=== PATIENT | female | born 1960 | race Caucasian/White ===

== ENCOUNTER → 2018-05-29 07:04 | Outpatient (CLI) | payer OTHER, SELFPAY ==
--- NOTE | 2018-05-29 07:09 | BI_ITS ---
MAMMOGRAPHY - BILATERAL SCREENING 3-D ROSEY SYNTHESIS REASON FOR EXAM: Female, 58 years old. Bilateral Screening 3-D tomosynthesis PERTINENT HISTORY: History of breast cancer in sister at age 48 and mother at age 82. Benign left stereotactic biopsy in 2002. TECHNIQUE: 2-D mammograms and 3-D Rosey synthesis of the breast (s) were performed. CAD was performed. COMPARISON: February 06, 2017, October 21, 2015 FINDINGS: The breast composition is almost entirely fat. There are multiple small nodular densities bilaterally unchanged. There are benign calcifications bilaterally. There has been no significant change since the prior study. BI/SCREENING MAMM (CAD), BILAT IMPRESSION: No mammographic signs of malignancy. Routine yearly mammograms recommended. ASSESSMENT CATEGORY: BIRADS Category 2: Benign. A letter regarding these results will be sent to the patient by the facility within 30 days. FOLLOW UP RECOMMENDATION: Yearly follow up mammogram recommended. (A) Approximately 10% of breast cancers are not detected by mammography. A normal mammogram should not delay biopsy of a clinically suspicious abnormality. Electronically Signed: Mayank Nath MD at 13:47 EDT , Service support ,
== END ==
PROVIDERS: Family Provider Nurse Practitioner Family; PCP Nurse Practitioner Family; Visit Provider Obstetrics & Gynecology
DX: Z12.31 Encounter for screening mammogram for malignant neoplasm of breast (principal)
CPT/HCPCS: 77063; 77067

== ENCOUNTER → 2018-06-06 09:02 | Outpatient (CLI) | payer OTHER, SELFPAY | PROVIDERS: Family Provider Nurse Practitioner Family; PCP Nurse Practitioner Family; Visit Provider Obstetrics & Gynecology | DX: R92.8 Other abnormal and inconclusive findings on diagnostic imaging of breast (principal) | CPT/HCPCS: 76642; 77065 ==

== ENCOUNTER → 2018-06-12 18:10 | Outpatient (CLI) | payer OTHER, SELFPAY ==
--- NOTE | 2018-06-12 | IMM_PTH ---
PATIENT: BRIAN HUSSEIN LOC: [facility] U#:[id number] AGE/SX: 65/F ROOM: RE06/12/[address]: Dr. Alonzo Holloway MD : 1960 BED: DIS: SPEC #: [id number] RECD: 06/14/18 11:03 STATUS: LANDRY SANJUANITA #: [id number] JEEVAN: 06/12/18 00:[address]: Alonzo Holloway DEPT: IMMUNOHISTOCHEMISTRY RECD BY: Haley Paniagua ENTERED: 06/14/18 11:06 SP TYPE: IMMUNO OTHR DR: Vilma Bowens, PRE PLANNING ADVISOR-C Tissues: Left breast, NOS Procedures: CALPONIN-1 (add) CK5-6 (add) CK8 (add) E-CAD (add) HER2 AVELINA (add) KI-67 (add) P53 (add) VA (add) P40 (add) ER (initial) PHYSICIAN & INSTITUTION [address] [address] SPECIMEN INFORMATION: Tissue Source: Left breast Clinical Info: Left breast mass Specimen Number: [id number] CPT code: 06774, 22665 x6, 23146 x3 METHODOLOGY: Deparaffinized sections of prefer/formalin-fixed tissue or PAP/DQ stained slides are incubated with monoclonal/polyclonal antibodies/oligonucleotide probes. Localization is made via biotin free immunoperoxidase method. Appropriate controls are performed and reacted as expected. Results on target cell population are indicated in the following table: RESULTS: ANTIBODY / CLONE RESULT P53 (DO-7) positive, 1% Ki-67 (30-9) positive, 2-5% CK8 (15xpiyL83) positive CK5-6 (D5 & 1684) negative Calponin-1 (AG510K) negative P40 (BC28) negative E-Cad (ECH-6) positive MORPHOMETRIC ANALYSIS ER (clone 6F11) >95%, strong VA (clone 16/1E2) 38%, weak to moderate Her-2Neu (clone CB11) 0 The prognostic test for HER2 is performed on formalin-fixed paraffin embedded tissue. A 3+ (positive) staining pattern is defined as intense, homogeneous, complete, circumferential membranous staining in >10% of contiguous tumor cells. A similar weak (2+) staining pattern is interpreted as equivocal. YON follow-up testing is recommended for all equivocal cases. Positivity/negativity for ER/VA is reported if > or < 1% of the tumor cells are immuno- reactive, respectively. The ASCO/CAP criteria is used for scoring. Reference: Journal of Clinical Oncology, 2013; 31:1575-8018 & 2010; 16:0457-7950. Duration of fixation: 27.5 Hrs; Sample Adequate: Yes. These assays have not been validated on decalcified tissues. Results should be interpreted with caution given the likelihood of false negativity on decalcified specimens. These tests were developed and their performance characteristics determined by [facility]. They may not have been cleared or approved by the U.S. Food and Drug Administration. The FDA has determined that such clearance or approval is not necessary. INTERPRETATION: Left breast, needle core biopsy: Invasive ductal carcinoma, nuclear grade I. Positive for estrogen receptors (favorable prognostic indicator). Positive for progesterone receptors (favorable prognostic indicator). Negative for overexpression of ZXX2nsp. AM:aureliano 06/15/18
--- NOTE | 2018-06-12 16:00 | BRBX_PTH ---
PATIENT: BRIAN HUSSEIN LOC: [facility] U#:[id number] AGE/SX: 65/F ROOM: RE06/12/[address]: Dr. Alonzo Holloway MD : 1960 BED: DIS: SPEC #: [id number] RECD: 06/12/18 18:10 STATUS: LANDRY SANJUANITA #: [id number] JEEVAN: 06/12/18 16:[address]: Alonzo Holloway DEPT: SURGICAL PATHOLOGY RECD BY: Lacho Coles ENTERED: 06/13/18 09:57 SP TYPE: BREAST BX OTHR DR: ANGELICA Ortiz Tissues: Left breast, NOS Procedures: Surgery Specimen Level IV HEADER OPERATION: Needle core biopsy of left breast PRE-OP DIAGNOSIS: Left breast mass TISSUE SUBMITTED: Left breast tissue ISCHEMIC TIME: <1 minute FIXATION TIME: 27.5 hours MICROSCOPIC DIAGNOSIS Left breast mass, core biopsy: Invasive ductal carcinoma: Nuclear grade ? 1 Maximal length ? 8 mm AM:aureliano 06/14/18 COMMENT ER/UT/Wyn9qye studies are being performed on sections of tumor and the results from this study will be reported separately ([id number]). Case has been reviewed in consultation with Dr. Aragon who concurs with the above diagnosis. IDC:CARLIN MICROSCOPIC DESCRIPTION Slides are reviewed. GROSS DESCRIPTION Received in fixative is one container labeled with the patient's name and designated left breast biopsy. The specimen consists of an elongated piece of ward-yellow fibroadipose tissue measuring 1 cm in length and 0.1 cm in diameter. The entire specimen is submitted in one cassette. / CARLIN:aureliano 06/13/18 TC:0 CPT: 02087
== END ==
PROVIDERS: Family Provider Nurse Practitioner Family; PCP Nurse Practitioner Family; Visit Provider Surgery
DX: N63.20 Unspecified lump in the left breast, unspecified quadrant (principal)
CPT/HCPCS: 88305; 88341; 88342

== ENCOUNTER → 2018-06-21 10:10 | Outpatient (CLI) | payer OTHER, SELFPAY | PROVIDERS: Family Provider Nurse Practitioner Family; PCP Nurse Practitioner Family; Visit Provider Surgery | DX: C50.912 Malignant neoplasm of unspecified site of left female breast (principal) | CPT/HCPCS: 77059; A9585; A4216; C8908 ==

== ENCOUNTER 2018-07-30 11:35 | Day surgery (SDC) | payer OTHER, SELFPAY ==
--- NOTE | 2018-07-26 08:42 | RAD_ITS ---
STUDY: X-RAY CHEST REASON FOR EXAM: Female, 58 years old. PRE OP FOR LEFT LUMPECTOMY WITH SENTINEL LYMPH NODE BX, NO CHEST COMPLAITNS TECHNIQUE: Frontal and lateral views of the chest. COMPARISON: None. FINDINGS: The lungs are clear and expanded. There is no demonstrated pleural abnormality. Normal size heart. Normal mediastinum and juan c. Normal visualized pulmonary arteries. Normal visualized aortic arch and descending thoracic aorta. Normal visualized thoracic spine. Normal visualized ribs, clavicles, and shoulders. There is no demonstrated abnormality of the visualized soft tissue structures of the upper abdomen. RAD/Chest PA and Lateral IMPRESSION: Normal x-ray examination of the chest. Electronically Signed: Rodri Yuan MD at 9:12 EDT Tel , Service support ,
--- NOTE | 2018-07-30 | IMM_PTH ---
PATIENT: BRIAN HUSSEIN LOC: [facility] – [place] U#:[id number] AGE/SX: 58/F ROOM: RE07/30/[address]: Dr. Alonzo Holloway MD : 1960 BED: DIS: 07/30/2018 SPEC #: [id number] RECD: 08/02/18 12:30 STATUS: LANDRY SANJUANITA #: [id number] JEEVAN: 07/30/18 00:[address]: Alonzo Holloway DEPT: IMMUNOHISTOCHEMISTRY RECD BY: Haley Paniagua ENTERED: 08/02/18 12:32 SP TYPE: IMMUNO OTHR DR: Vilma Bowens, ANGELICA Tissues: A - Axillary lymph node, NOS B - Left breast, NOS Procedures: E-CAD (initial) CK7 (add) Pankeratin (initial) PHYSICIAN & INSTITUTION [place] [address] SPECIMEN INFORMATION: Tissue Source: A - Left axillary lymph node, B - Left breast, transverse ellipse Clinical Info: Malignant neoplasm Specimen Number: [id number] A1 & B2 CPT code: 33224 x2, 15124 METHODOLOGY: Deparaffinized sections of prefer/formalin-fixed tissue or PAP/DQ stained slides are incubated with monoclonal/polyclonal antibodies/oligonucleotide probes. Localization is made via biotin free immunoperoxidase method. Appropriate controls are performed and reacted as expected. Results on target cell population are indicated in the following table: RESULTS: ANTIBODY / CLONE RESULT Block A1 AE1-3 (AE1/AE3/PCK26) negative CK7 (OV-TL12/30) negative Block B1 E-Cad (ECH-6) positive These tests were developed and their performance characteristics determined by [facility]. They may not have been cleared or approved by the U.S. Food and Drug Administration. The FDA has determined that such clearance or approval is not necessary. INTERPRETATION: A. Left axillary sentinel lymph node, biopsy: One out of one lymph node negative for carcinoma. B. Left breast, lumpectomy: Invasive ductal carcinoma. Focal ductal carcinoma in situ. AM:aureliano 08/02/18
--- NOTE | 2018-07-30 | BRBX_PTH ---
PATIENT: BRIAN HUSSEIN LOC: [facility] – [place] U#:[id number] AGE/SX: 58/F ROOM: RE07/30/[address]: Dr. Alonzo Holloway MD : 1960 BED: DIS: 07/30/2018 SPEC #: [id number] RECD: 07/30/18 14:34 STATUS: LANDRY SANJUANITA #: [id number] JEEVAN: 07/30/18 00:[address]: Alonzo Holloway DEPT: SURGICAL PATHOLOGY RECD BY: Haley Paniagua ENTERED: 07/30/18 15:06 SP TYPE: BREAST BX OTHR DR: Vilma Bowens, FLOUR BLENDER-C Tissues: A - Axillary lymph node, NOS B - Left breast, NOS C - Left breast, NOS Procedures: Frozen Section (charge) Surgery Specimen Level IV Surgery Specimen Level V Frozen (no charge) HEADER OPERATION: Breast lumpectomy, sentinel node PRE-OP DIAGNOSIS: Malignant neoplasm of lower inner quadrant, left breast, ER positive TISSUE SUBMITTED: A - Left axillary lymph node sent to lab for FS at 1419, B - Suture - lateral, transverse ellipse left breast sent to lab at 1430 - lateral, C - Additional medial-posterior margin, left breast FROZEN SECTION DIAGNOSIS A. Left axillary sentinel lymph node, biopsy: One out of one benign lymph node. Fragments of benign breast parenchyma. AM:aureliano 07/30/18 MICROSCOPIC DIAGNOSIS A. Left axillary sentinel lymph node, biopsy: One out of one lymph node, negative for metastatic carcinoma. Fragments of benign breast parenchyma. B. Left breast, lumpectomy: Invasive ductal carcinoma. See cancer checklist below. C. Additional medial-posterior margin of left breast, excision: Benign breast parenchyma. No evidence of malignancy. See comment. AM:aureliano 08/02/18 COMMENT B. INVASIVE BREAST CANCER SUMMARY: Procedure: Excision with wire guidance Specimen: Partial breast Specimen integrity: Single intact specimen. Specimen size: 6 x 5.5 x 2 cm Specimen laterality: Left breast Invasive tumor: Tumor size: 0.9 x 0.5 x 0.5 cm Tumor focality: Single focus of invasive carcinoma Macroscopic and Microscopic extent of tumor: Skin: Free of carcinoma. Nipple: Not present Skeletal muscle: Present Histologic type of invasive carcinoma: Invasive ductal carcinoma Histologic Grade (Lyme grade): Glandular/tubular differentiation score: 3 Nuclear pleomorphism score: 2 Mitotic count score: 1 Overall grade: Grade 2 (total score of 6) Margins: Uninvolved by invasive carcinoma (inclusive of specimens B & C). Lymph-Vascular invasion: Not identified Dermal lymph-vascular invasion: Not identified Ductal carcinoma in situ (DCIS): Estimated size (extent) of DCIS: 2.2 x 1 x 1 mm Number of blocks with DCIS: 2 Number of blocks examined: 12 Architectural patterns: Solid and focal cribriform Nuclear grade: grade 1 Necrosis: Not identified Lobular carcinoma in situ (LCIS): Not present Lymph nodes: Number of sentinel lymph nodes examined - 1 Total number of lymph nodes examined (sentinel and nonsentinel) - 1 No evidence of macrometastases, micrometastases or isolated tumor cells. See specimen A. Microcalcifications: Present in neoplastic tissue Treatment effect: No known presurgical therapy Additional pathologic findings consistent with previous biopsy: Focal intraductal hyperplasia without atypia and fibrocystic change. Ancillary studies: Previously performed on same tumor ([id number] / [id number]) ER: >95%, strong MD: 38%, Weak to moderate Her2 amadeo: 0 ([facility]) PATHOLOGIC STAGE: pT1b N0(sn) Mx The above summary is in compliance with College of [place] Path[employer] (CAP) Cancer Protocols Checklist and [place] Joint Committee on Cancer (AJCC), Staging Manual, 8th Ed. C. Skeletal muscle fragments are present in the biopsy. Case has been reviewed in consultation with Dr. Aragon who concurs with the above diagnosis. IDC:SJ MICROSCOPIC DESCRIPTION Slides are reviewed. GROSS DESCRIPTION A - Received fresh for frozen section consultation labeled with the patient's name is a specimen designated left axillary sentinel lymph nodes. The specimen consists of three irregular fragments of ward-yellow fibrofatty tissue that in aggregate measure 5 x 4 x 1 cm. Dissection reveals three nodules ranging in size from 1 to 2 cm. The nodules are submitted in their entirety for frozen section consultation in three separate blocks. / AM:aureliano 07/30/18 B - Received fresh for intraoperative consultation labeled with the patient's name is a specimen designated left breast transverse ellipse, suture lateral. The specimen consists of a piece of ward-yellow fibroadipose tissue (without needle localization) measuring 6 x 5.5 x 2 cm. A piece of skin is noted anteriorly measuring 3 x 0.7 cm. The specimen is oriented by a suture at lateral margin and skin anteriorly. The specimen is inked as follows: anterior - yellow, posterior - black, superior to inferior portions - blue, inferior - green, medial - red and lateral - orange. Serial sections reveal a tumor mass measuring 0.9 x 0.5 x 0.5 cm. This tumor mass is 0.5 cm away from the medial and inferior margin. This information is conveyed to the surgeon intraoperatively. Inspector Hot Forgings sections are submitted in 12 cassettes as follows: 1-7 - tumor with closest medial and inferior margins, 8-12 - containers sales representative sections from the other area including closest margin (cassette 11 contains the skin). About 80% of the specimen is submitted. Sections will be submitted after additional fixation. / SJ:aureliano 07/31/18 C - Received in fixative is one container labeled with the patient's name and designated additional medial posterior margin left breast. The specimen consists of a piece of fibroadipose tissue measuring 3.5 x 2 x 1 cm. The margin is not oriented. One surface is inked black and opposite surface is inked blue. Sections do not reveal any mass lesion. The entire specimen is submitted in three cassettes from one end to another end. / SJ:aureliano 07/31/18 TC:0 CPT: 81367 x2, 13980, 73069 ADDENDUM ADDENDUM ADDENDUM ADDENDUM ADDENDUM ADDENDUM 08/28/2018 11:08 ADDENDUM 08/28/2018 11:08 ADDENDUM 08/28/2018 11:08 ADDENDUM 08/28/2018 11:08 ADDENDUM 08/28/2018 11:08 B. The invasive carcinoma is located 0.5 cm from the closest (medial and inferior) margins of excision. Case was discussed with Dr. Chacon on 08/28/[address] Man.
[2018-07-30 11:48] VITALS: BP 157/88; PULSE 72; RESP 16; TEMP 37.4; O2SAT 100; BMI 25.7
--- NOTE | 2018-07-30 13:32 | PCM.DC.BS ---
Discharge Diet: No Restrictions Discharge Activity: May not drive while taking narcotic pain medications., May Shower May shower in (days): 1 Lifting Restrictions: 10 pounds for 1 week. Call your doctor if your incision/area has: Continuous Slow Oozing, Sudden Increased Bleeding Call your doctor if you observe: Fever of 101 or Higher Suture Line Care: Avoid Pulling/Pushing, Avoid Pinching/Bending Remove Dressing in (days):: 1 - You may remove the bulky dressing tomorrow. You may leave the plastic dressings on for an additional 2 days. You may then leave Steri-Strips on for an additional 1 week Allergies/Adverse Reactions: Allergies No Known Allergies Allergy (Verified 07/26/18 08:11) Medications to take at Discharge Levothyroxine [Synthroid] 125 mcg PO QHS 08/02/17 colestipol 1 gram tablet 1 g PO BID tab 06/12/18 glucosamine sulfate 1,000 mg capsule 1,000 mg PO DAILY 06/12/18 Biotin 5,000 mcg PO DAILY 06/21/18 Lysine [l-Lysine] 500 mg PO DAILY 06/21/18 Mv,Ca,Min/Folic Acid/Vit K1 [One-A-Day Women's 50 Plus Tab] 1 ea PO DAILY 06/21/18 Hydrocodone Bitart/Apap 5-325 [[place] 5MG-325MG] 1 tablet PO Q6H PRN PRN 3 Days #8 tablet 07/30/18 The following prescriptions were given: Hydrocodone Bitart/Apap 5-325 [[place] 5MG-325MG] 1 tablet PO Q6H PRN PRN 3 Days #8 tablet PRN Reason: Pain Primary Care Physician: Vilma Bowens NP-C [Primary Care Provider] - Please Follow Up With: Alonzo Holloway MD When: Call for appointment for 1 week. [phone]
--- NOTE | 2018-07-30 13:35 | DCINST_ITS ---
Discharge Diet: No Restrictions Discharge Activity: May not drive while taking narcotic pain medications., May Shower May shower in (days): 1 Lifting Restrictions: 10 pounds for 1 week. Call your doctor if your incision/area has: Continuous Slow Oozing, Sudden I ncreased Bleeding Call your doctor if you observe: Fever of 101 or Higher Suture Line Care: Avoid Pulling/Pushing, Avoid Pinching/Bending Remove Dressing in (days):: 1 - You may remove the bulky dressing tomorrow. You may leave the plastic dressings on for an additional 2 days. You may then leave Steri-Strips on for an additional 1 week Allergies/Adverse Reactions: Allergies No Known Allergies Allergy (Verified 07/26/18 08:11) Medications to take at Discharge Levothyroxine [Synthroid] 125 mcg PO QHS 08/02/17 colestipol 1 gram tablet 1 g PO BID tab 06/12/18 glucosamine sulfate 1,000 mg capsule 1,000 mg PO DAILY 06/12/18 Biotin 5,000 mcg PO DAILY 06/21/18 Lysine [l-Lysine] 500 mg PO DAILY 06/21/18 Mv,Ca,Min/Folic Acid/Vit K1 [One-A-Day Women's 50 Plus Tab] 1 ea PO DAILY 06/21/18 Hydrocodone Bitart/Apap 5-325 [[place] 5MG-325MG] 1 tablet PO Q6H PRN PRN 3 Days #8 tablet 07/30/18 The following prescriptions were given: Hydrocodone Bitart/Apap 5-325 [[place] 5MG-325MG] 1 tablet PO Q6H PRN PRN 3 Days #8 tablet PRN Reason: Pain Primary Care Physician: Vilma Bowens NP-C [Primary Care Provider] - Please Follow Up With: Alonzo Holloway MD When: Call for appointment for 1 week. [phone]
[2018-07-30] MEDS: Isosulfan Blue 1% 5 ML Vial (13:45)
[2018-07-30] MEDS: Bupivacaine Mpf 0.5% 30 ML VIAL (14:47)
--- NOTE | 2018-07-30 14:51 | PCM.OPRPT ---
Problem List (1) Breast cancer Status: Acute Qualifiers: Breast location: lower inner quadrant of breast Estrogen receptor status: positive Patient sex: female Laterality: left Qualified Code(s): C50.312 - Malignant neoplasm of lower-inner quadrant of left female breast; Z17.0 - Estrogen receptor positive status [ER+] Report of Operation Date of Procedure: 07/30/18 Pre-Operative Diagnosis: Medial left breast cancer Post-Operative Diagnosis: Same Surgery/Procedure Performed:: Medial left breast lumpectomy with left axillary blue dye sentinel lymph node biopsy Description of Surgical Findings:: Timeout and informed consent was obtained. 58-year-old female was taken out from placement table underwent general anesthesia. The left arm was carefully wrapped with soft roll and placed at right angles the table. The left breast was prepped with alcohol. 2-1/2 cc of isosulfan blue dye was injected retroareolar area. Massage was performed for 3 minutes. The left axilla and breast was sterilely prepped and draped. An oblique incision was made in the left axilla sharp and blunt dissections to have through the substance tissue. Eye tracking was noted quite deeply in the breast. Single solitary lymph node encountered this was excised hemostasis and electrocautery and hemoclips. There is some fibrous tuft breast tissue more inferiorly couple segments of this was taken looking for blue dye. There was no residual palpable visual adenopathy. As the lesion was extraordinarily medially place elected not to perform further lymph node dissection. That wound was then eventually closed with a deep layer of interrupted 3-0 Vicryl and then a running septic or 4 Monocryl subdermal stitch. Attention was drawn to the far medial left breast. A transverse elliptical excision so as to incorporate the palpable mass was performed. Electrocautery dissection performed subcutaneously. Complete dissection performed circumferentially around the lesion. The pectoralis fascia was taken with the tissue. I then took an additional margin medially of breast tissue and pectoralis major. Visualization and palpation failed to reveal any residual disease. A suture was placed in the lateral aspect of the transverse ellipse. That wound was then closed with a deep layer of interrupted 3-0 Vicryl and then a running septic or 4-0 Monocryl. Specimen suggest one sentinel node negative for disease. The lumpectomy is a 9 mm lesion with clear margins of 5 mm. The wound edges were treated with Skin-Prep and Steri-Strips Telfa OpSite dressings and bulky dry dressing. Sponge and instrument and needle counts were reported the surgeon be correct. Blood loss was minimal. The mckenzie-incisional areas had been anesthetized with 0.5% Marcaine. Total 30 cc was used. Specimens left axillary sentinel lymph node and left breast lumpectomy specimen with margin reexcision. Drains none. Blood loss minimal. She was taken to the recovery area in satisfactory condition without apparent complication Alonzo Holloway M.D., F.A.C.S. Type of Anesthesia:: General Anesthesiologist: Beckie Crum
[2018-07-30 15:04] VITALS: BP 128/78; BP 157/88; PULSE 64; RESP 18; TEMP 36.1; O2SAT 100
[2018-07-30 15:15] VITALS: BP 137/74; BP 157/88; PULSE 63; RESP 63; O2SAT 100
[2018-07-30 15:26] VITALS: BP 139/80; BP 157/88; PULSE 66; RESP 18; TEMP 36.2; O2SAT 100
[2018-07-30] MEDS: HYDROcodone Bitartrate/Apap 5/325 Tablet PO (16:12)
[2018-07-30 17:05] VITALS: BP 127/76; BP 157/88; PULSE 69; RESP 16; TEMP 37.7; O2SAT 96
== END 2018-07-30 17:10 | disposition home or self-care (01) ==
LOC: SDC 11:35 → AC 11:36
PROVIDERS: Family Provider Nurse Practitioner Family; PCP Nurse Practitioner Family; Referring Provider Surgery; Visit Provider Surgery
PROC: (CPT 19301; principal; 2018-07-30 13:25)
DX: C50.312 Malignant neoplasm of lower-inner quadrant of left female breast (principal); Z17.0 Estrogen receptor positive status [ER+]; E06.9 Thyroiditis, unspecified; K58.9 Irritable bowel syndrome, unspecified; Z79.899 Other long term (current) drug therapy; Z80.3 Family history of malignant neoplasm of breast
CPT/HCPCS: 19301; 38500; 38792; 71046; 88305; 88307; 88331; 88341; 88342; J7120; J2405; Q9968

== ENCOUNTER → 2018-08-08 10:34 | Outpatient (CLI) | payer OTHER, SELFPAY ==
--- NOTE | 2018-08-08 10:37 | US_ITS ---
STUDY: ABDOMINAL ULTRASOUND - RIGHT UPPER QUADRANT REASON FOR VISIT: Female, 58 years old. Chronic diarrhea. TECHNIQUE: Ultrasound evaluation of the right upper quadrant was performed with real-time and static rodgers-scale imaging. TECHNICAL QUALITY: Adequate. COMPARISON: None. FINDINGS: Liver: The liver measures 14.0 cm. There is mild increased echogenicity consistent with fatty infiltration. The bile ducts are within normal limits. There is hepatic color flow. The direction of portal flow is hepatopetal. There is no demonstrated mass lesion. Gallbladder: Normal distended gallbladder. The gallbladder wall measures 2.7 mm. There is a negative sonographic Vaz's sign. There is no pericholecystic fluid. There are no gallstones. Common Bile Duct (C.B.D.): The common bile duct measures 3.6 mm. Pancreas: Normal size of the head, body and tail of the pancreas. There is normal echogenicity of the pancreas. There is no demonstrated pancreatic mass or cyst. Right Kidney: Normal size of the right kidney. The right kidney measures 10.5 cm in length. Normal renal cortex. There is no demonstrated renal mass or cyst. There is no right hydronephrosis. US/Abdomen Limited IMPRESSION: Mild fatty infiltration of the liver. Electronically Signed: Jennifer Arita MD at 22:06 EDT Tel , Service support ,
== END ==
PROVIDERS: Family Provider Nurse Practitioner Family; PCP Nurse Practitioner Family; Referring Provider Nurse Practitioner Family; Visit Provider Nurse Practitioner Family
DX: K76.0 Fatty (change of) liver, not elsewhere classified (principal); R19.7 Diarrhea, unspecified
CPT/HCPCS: 76705

== ENCOUNTER → 2018-08-28 15:57 | Outpatient (CLI) | payer OTHER, SELFPAY ==
[2018-08-28 14:50] VITALS: BMI 26.6
--- NOTE | 2018-08-28 16:01 | BD_ITS ---
STUDY: DUAL ENERGY X-RAY ABSORPTIOMETRY / DXA REASON FOR EXAM: Female, 58 years old. The patient is postmenopausal. Loss of height. TECHNIQUE: Bone Mineral Density (BMD) measurements of lumbar spine and bilateral hips were obtained. COMPARISON: None. FINDINGS: Lumbar Spine (L1-L4): g/cm2 (1.367) / T-score (1.6) / Z-score (2.6) Findings are suggestive of normal bone density with a low fracture risk. Left Femur Total: g/cm2 (1.152) / T-score (1.1) / Z-score (1.9) Left Femoral Neck: g/cm2 (1.155) / T-score (0.8) / Z-score (1.9) Right Femur Total: g/cm2 (1.179) / T-score (1.4) / Z-score (2.1) Right Femoral Neck: g/cm2 (1.179) / T-score (1.0) / Z-score (2.1) BD/Dexa Bone Density Study IMPRESSION: The patient is considered normal as outlined below according to World [place] Organization (WHO) criteria with a low fracture risk. Reference Information: The T-score is the number of standard deviations above or below the standard which is normal for young adults at their peak bone mineral density. The World Health Organization (WHO) interprets the T-scores as follows: Above -1 Normal bone density Between -1 and -2.5 Osteopenia Equal to / or below -2.5 Osteoporosis As a practical clinical guideline, osteopenia may be graded as follows: Mild -1 through -1.5 Moderate -1.6 through -2.0 Severe -2.1 through -2.4 The Z-score is the number of standard deviations above or below age-matched controls. A Z-score of less than -1.5 would be considered abnormal. References: 1. NIH Osteoporosis and Related Bone Diseases http://www.osteo.org 2. International Society for Clinical Densitometry http://www.iscd.org 3. National Osteoporosis Foundation http://www.nof.org Electronically Signed: Jas Blandon MD at 15:38 EST Tel [phone], Service support ,
== END ==
PROVIDERS: Family Provider Nurse Practitioner Family; PCP Nurse Practitioner Family; Visit Provider Internal Medicine Medical Oncology
DX: Z01.818 Encounter for other preprocedural examination (principal)
CPT/HCPCS: 77080

== ENCOUNTER → 2019-04-11 | Outpatient (CLI) | payer OTHER, SELFPAY ==
[2018-08-28 14:50] VITALS: BMI 26.6
[2019-04-11 14:51] VITALS: BMI 29.0
--- NOTE | 2019-04-11 15:23 | RAD_ITS ---
HISTORY: PRODUCTIVE COUGH, HX BREAST CA ADDITIONAL HISTORY: None provided. COMPARISON: 07/26/2018 TECHNIQUE: Frontal and lateral chest radiographs. Number of images including paperwork: 2 FINDINGS: LUNGS AND PLEURA: No consolidation, mass or pleural effusion. CARDIAC SILHOUETTE: Unremarkable. MEDIASTINUM AND KASSY: Unremarkable. UPPER ABDOMEN: Unremarkable. SKELETON AND SOFT TISSUES: No acute findings. OTHER DEVICES AND HARDWARE: None. RAD/Chest PA and Lateral IMPRESSION: No acute cardiopulmonary abnormality. at 0623 Reported and signed by: Ailyn Panchal MD Electronically Signed: Ailyn Panchal MD at 6:23 EDT Tel , Service support ,
[2019-04-11 17:06] LABS: T4 Free Direct 1.43 ng/dL (0.76-1.46); Thyroid Stim Hormone (TSH) 1.21 uIU/mL (0.358-3.74)
== END | disposition home or self-care (01) ==
PROVIDERS: Family Provider Nurse Practitioner Family; PCP Nurse Practitioner Family; Referring Provider Internal Medicine Medical Oncology; Visit Provider Internal Medicine Medical Oncology
DX: R05 Cough (principal); Z85.3 Personal history of malignant neoplasm of breast; E03.9 Hypothyroidism, unspecified
CPT/HCPCS: 36415; 71046; 84439; 84443

== ENCOUNTER → 2019-06-18 07:20 | Outpatient (CLI) | payer OTHER, SELFPAY ==
[2018-08-28 14:50] VITALS: BMI 26.6
[2018-10-18 14:34] VITALS: BMI 27.6
[2019-04-11 14:51] VITALS: BMI 29.0
--- NOTE | 2019-06-18 07:22 | BI_ITS ---
MAMMOGRAPHY - BILATERAL SCREENING REASON FOR EXAM: Female, 59 years old. Routine annual screening examination. PERTINENT HISTORY: Personal history of breast cancer. Prior left lumpectomy and radiation treatment. Sister with breast cancer. TECHNIQUE: Digital bilateral breast rosey (3D mammographic acquisition) in the CC and MLO projections. 2-D mediolateral oblique (MLO) and craniocaudad (CC) views of both breasts were obtained. CAD: Full Field Digital Mammography with Computer Added Detection was performed. COMPARISON: Comparison is made with prior examination dated May 29, 2018 and February 06, 2017. FINDINGS: Breast Composition: There are scattered areas of fibroglandular density. There are no dominant masses or suspicious calcifications. Stable 1.1 cm well-defined nodule in the slightly superior lateral aspect of the retroareolar region of the right breast. Since prior study, the patient underwent a lumpectomy in the inferior medial aspect of the left breast. A tissue clip marker is also seen in the retroareolar region of the left breast. No other significant abnormalities are identified. BI/SCREEN MAMM (CAD) W/ROESY BILAT IMPRESSION: Status post left lumpectomy. Stable nodular density in the right breast. . Yearly follow-up mammogram recommended. (A) ASSESSMENT CATEGORY: BIRADS Category 2: Benign. A letter regarding these results will be sent to the patient by the facility within 30 days. Approximately 10% of breast cancers are not detected by mammography. A normal mammogram should not delay biopsy of a clinically suspicious abnormality. [id number] Electronically Signed: Jas Blandon, at 13:33 EDT , Service support ,
== END ==
PROVIDERS: Family Provider Nurse Practitioner Family; PCP Nurse Practitioner Family; Referring Provider Student in an Organized Health Care Education/Training Program; Visit Provider Student in an Organized Health Care Education/Training Program
DX: Z12.31 Encounter for screening mammogram for malignant neoplasm of breast (principal); Z85.3 Personal history of malignant neoplasm of breast; Z80.3 Family history of malignant neoplasm of breast
CPT/HCPCS: 77063; 77067

== ENCOUNTER → 2020-07-15 07:04 | Outpatient (CLI) | payer OTHER, SELFPAY ==
[2018-08-28 14:50] VITALS: BMI 26.6
[2019-10-31 08:29] VITALS: BMI 27.6
--- NOTE | 2020-07-15 07:08 | BI_ITS ---
MAMMOGRAPHY - BILATERAL SCREENING REASON FOR EXAM: Female, 60 years old. Routine annual screening examination. PERTINENT HISTORY: Personal history of breast cancer. Prior left lumpectomy and radiation treatment. Sister with breast cancer. Mother with breast cancer. Remote left stereotactic breast biopsy. TECHNIQUE: Digital bilateral breast rosey (3D mammographic acquisition) in the CC and MLO projections. 2-D mediolateral oblique (MLO) and craniocaudad (CC) views of both breasts were obtained. CAD: Full Field Digital Mammography with Computer Added Detection was performed. COMPARISON: Comparison is made with prior examination dated 06/18/2019 and 05/29/2018. FINDINGS: Breast Composition: There are scattered areas of fibroglandular density. There are no dominant masses or suspicious calcifications. The patient is status post lumpectomy in the inferior deep medial aspect of the left breast with postoperative scarring. A tissue clip marker is seen in the anterior retroareolar region of the left breast. Stable 1 cm well-defined nodule in the superior retroareolar region of the right breast. Correlation with ultrasound is recommended. No other significant abnormalities are identified. There has been no significant change since the prior study. BI/SCREEN MAMM (CAD) W/ROSEY BILAT IMPRESSION: Stable bilateral screening mammogram. Correlation with ultrasound of the right breast is recommended to assess the retroalveolar nodular density. ASSESSMENT CATEGORY: Approximately 10% of breast cancers are not detected by mammography. A normal mammogram should not delay biopsy of a clinically suspicious abnormality. [id number] Electronically Signed: Jas Blandon, at 9:08 EDT , Service support ,
--- NOTE | 2020-07-15 08:43 | US_ITS ---
STUDY: ULTRASOUND BREAST - RIGHT REASON FOR EXAM: Female, 60 years old. Abnormal screening mammogram. TECHNIQUE: Axial and longitudinal images of the RIGHT breast were performed with a high resolution ultrasound transducer. # OF IMAGES: 11 COMPARISON: Comparison is made with prior mammogram done earlier today. FINDINGS: RIGHT Breast: There is a 7 mm x 9 mm x 2 mm well circumscribed hypoechoic nodule at the 11 o''clock position of the breast at 2 cm from the nipple. Minimal posterior acoustical shadowing is seen. A biopsy is recommended for further evaluation. US/Breast Limited Unilateral IMPRESSION: 7 mm x 9 mm x 2 mm well-circumscribed hypoechoic nodule at 11 o''clock position breast at 2 cm from the nipple. A biopsy is recommended. ASSESSMENT CATEGORY: BIRADS Category 4: Suspicious - Biopsy Should Be Considered. A letter regarding these results will be sent to the patient by the facility within 30 days. Electronically Signed: Jas Blandon, at 10:00 EDT , Service support ,
== END ==
PROVIDERS: PCP Nurse Practitioner Family; Referring Provider Student in an Organized Health Care Education/Training Program; Visit Provider Student in an Organized Health Care Education/Training Program
DX: Z12.31 Encounter for screening mammogram for malignant neoplasm of breast (principal); N63.11 Unspecified lump in the right breast, upper outer quadrant; Z85.3 Personal history of malignant neoplasm of breast; Z80.3 Family history of malignant neoplasm of breast
CPT/HCPCS: 76642; 77063; 77067

== ENCOUNTER 2020-12-10 08:19 | Day surgery (SDC) | payer OTHER, SELFPAY ==
[2018-08-28 14:50] VITALS: BMI 26.6
[2020-07-20 13:33] VITALS: BMI 28.5
--- NOTE | 2020-12-01 16:03 | EKG12_ITS ---
Test Reason : PRE SURGERY Blood Pressure : / mmHG Vent. Rate : 072 BPM Atrial Rate : 072 BPM P-R Int : 158 ms QRS Dur : 082 ms QT Int : 424 ms P-R-T Axes : 062 050 049 degrees QTc Int : 464 ms Normal sinus rhythm Normal ECG Confirmed by ROSA STEPHEN, CYNDI ([id number]), offline editor SARAH GERMAIN ([id number]) on 12/02/2020 8:58:39 AM Referred By: Trudi Bergman Confirmed By:CYNDI LEE MD
[2020-12-09 13:41] LABS: Hematocrit 37.2 % (37-47); Hemoglobin 12.1 g/dL (12.0-15.0); Mean Corp Hgb Conc 32.5 g/dL (32-36); Mean Corpuscular Hgb 30.3 pg (27.0-32.0); Mean Corpuscular Volume 93.2 fL (81-99); Mean Platelet Vol. 9.9 fl (6.2-12.0); Platelet Count 276 K/mm3 (150-450); RBC Distribution Width CV 12.8 % (11.6-14.6); RBC Distribution Width SD 43.8 fl (35.1-43.9); Red Blood Count 3.99 M/mm3 (4.2-5.4); White Blood Count 4.1 K/mm3 (4.4-11.0)
[2020-12-09 14:26] LABS: Magnesium 2.4 mg/dL (1.6-2.6); Thyroid Stim Hormone (TSH) 3.72 uIU/mL (0.358-3.74)
[2020-12-10] VITALS (10 sets, daily range): BP systolic 100–143; BP diastolic 58–82; PULSE 54–73; RESP 16–18; TEMP 36.2–37.6; O2SAT 95–100; BMI 29.8
--- NOTE | 2020-12-10 | HYST_PTH ---
PATIENT: BRIAN HUSSEIN [place] [facility] [place][id number] AGE/SX: 60/F ROOM: RE12/10/[address]: Dr. Trudi Bergman, : 1960 BED: DIS: 12/10/2020 SPEC #: [id number] RECD: 12/10/20 15:36 STATUS: LANDRY GANN #: [id number] JEEVAN: 12/10/20 00:[address]: Trudi Bergman DEPT: SURGICAL PATHOLOGY RECD BY: Ravindra Vinson ENTERED: 12/11/20 07:23 SP TYPE: HYSTERECT OTHR DR: Vilma Bowens, CARE WORKER-C Tissues: A - Uterus, NOS B - Fallopian tube Procedures: Surgery Specimen Level IV Surgery Specimen Level V HEADER OPERATION: ERAS, total laparoscopic hysterectomy, BSO, cysto PRE-OP DIAGNOSIS: History of breast CA TISSUE SUBMITTED: A - Uterus and bilateral ovaries, B - Bilateral fallopian tubes MICROSCOPIC DIAGNOSIS A. Uterus, hysterectomy: Cervix - nabothian cysts. Endometrial polyp - simple cystic hyperplasia without atypia. Endometrium - inactive endometrium with cystic change. Myometrium - adenomyosis. Right ovary - benign epithelial inclusion cysts. Left ovary - benign epithelial inclusion cysts. B. Right and left fallopian tubes, bilateral salpingectomies: Benign paratubal cysts. AM:aureliano 12/14/2020 COMMENT Case has been reviewed in consultation with Dr. Aragon who concurs with the above diagnosis. IDC:[id number] MICROSCOPIC DESCRIPTION Slides are reviewed. GROSS DESCRIPTION A - Received in fixative is one container labeled with the patient's name and designated uterus. The specimen consists of a uterus with attached cervix and attached right and left ovaries. The uterus with cervix measures 11 x 8 x 6 cm and weighs 215 gm. The ectocervix is grossly unremarkable. The endocervical canal measures 4 cm in length and is grossly unremarkable. The triangular endometrial cavity measures 5 x 3.5 cm. The velvety, reddish-ward endometrium measures up to 0.2 cm in thickness. The anterior endometrial surface contains a 1 cm light ward polyp. The left ovary measures 2.8 x 2 x 1.2 cm. Serial sections of the left ovary likewise do not reveal mass lesions. Dry Molder sections are submitted as follows: 1 - anterior cervix, 2 - posterior cervix, 3 - endometrial polyp, 4 & 5 - anterior uterine wall, 6 & 7 - posterior myometrial wall, 8 - right ovary, 9 - left ovary. B - Received in fixative is one container labeled with the patient's name and designated bilateral fallopian tubes. The specimen consists of two fallopian tubes with an average length of 4.5 cm and has an average diameter of 0.7 cm. One fallopian tube is inked in black ink. Both fallopian tubes have normal fimbriated ends. No mass lesions are identified. Dry Molder sections are submitted in four cassettes as follows: 1 - one fallopian tube, 2 - the other fallopian tube, 3 & 4 - remainder of fallopian tubes. / AM:aureliano 12/11/20 TC:5 CPT: 97372, 89200 x2
[2020-12-10] MEDS: Lactated Ringers 1,000 ML 40 ML IV ×3 (10:05→16:10)
[2020-12-10] MEDS: Celecoxib 200 MG Capsule 400 MG PO (10:31)
[2020-12-10] MEDS: Acetaminophen 500 MG Tablet 1000 MG PO (10:31)
[2020-12-10] MEDS: Gabapentin 600 MG Tablet PO (10:31)
[2020-12-10] MEDS: Enoxaparin 40 MG/0.4 ML Syringe SC (10:32)
--- NOTE | 2020-12-10 11:38 | PCM.HPOB.BLA ---
History and Physical Date of Admission: 12/10/20 HPI: 60-year-old female presenting for total laparoscopic hysterectomy bilateral salpingo-oophorectomy, cystoscopy for history of breast cancer and strong family history. Prophylactic surgery. Patient had negative genetic testing. Obstetrical History . Past Medical History 1. Left breast cancer in 2018 2. Hypothyroidism Medications 1. Synthroid 2. Colestipol 3. Tamoxifen Past Surgical History 1. Left breast surgery 2017 2. Right leg repair of dog bite in 2012 3. 2013 uterine fibroid embolization Social History Tobacco use: Denies Alcohol use: Denies Illicit drug use: Denies Allergies No known drug allergies Review of Systems General: alert and oriented HEENT: _denies change of vision Heart/lungs: _denies CP, SOB GI: _denies nausea, vomiting, dysuria, diarrhea MSK: _denies calf pain, tenderness Physical Exam Vital Signs Temp Pulse Resp BP Pulse Ox 12/10/20 10:23 99.6 F H 70 18 143/67 H 99 General: a&o x3, NAD HEENT: normocephalic, atraumatic Cardio: no JVD, regular rate and rhythm Resp: no increased work in breathing, clear to auscultation bilaterally Abdomen: soft, nontender Extremities: _minimal-moderate edema Labs Laboratory Results - last 24 hr 12/09/20 12/09/20 12/09/20 12:54 13:02 13:02 WBC 4.1 L RBC 3.99 L Hgb 12.1 Hct 37.2 MCV 93.2 MCH 30.3 MCHC 32.5 RDW Std Deviation 43.8 RDW Coeff of Luzma 12.8 Plt Count 276 MPV 9.9 Magnesium 2.4 TSH 3.72 Blood Type A POSITIVE Antibody Screen NEGATIVE Covid negative Assessment & Plan 60-year-old female presenting for total laparoscopic hysterectomy bilateral salpingo-oophorectomy, cystoscopy prophylactic for personal history of breast cancer and family history, negative genetic testing. All risk, benefits, alternatives were discussed with the patient. Risks include but are not limited to: Risk of bleeding to the point of transfusion, infection, injury to surrounding tissue including bowel or bladder requiring prolonged Yuan catheter use, VTE, ICU admission. Patient is aware and consented. As she is taking tamoxifen currently and had a Cabrini score of VTE risk 1.8% we will plan for Lovenox 7 days postoperative once daily for risk of VTE.
--- NOTE | 2020-12-10 12:31 | PCM.OPRPT ---
Report of Operation Date of Procedure: 12/10/20 Pre-Operative Diagnosis: Personal and family history of breast cancer Post-Operative Diagnosis: Personal and family history of breast cancer Surgery/Procedure Performed:: Total laparoscopic hysterectomy, bilateral salpingo-oophorectomy, cystoscopy. Lysis of adhesions. Description of Surgical Findings:: Normal-appearing external genitalia. Normal-appearing fibroid uterus, normal-appearing cervix bilateral tubes and ovaries. Normal-appearing abdominal cavity upon inspection: Normal-appearing omentum, bowel, liver. Bowel adhesions on the right pelvic sidewall. Adhesions of the right ovary to the left pelvic sidewall. On cystoscopy intact bladder dome and bilateral ureteral jets. pharmacy informatics manager: Randal Bergman Type of Anesthesia:: General Specimen's removed: Uterus, cervix, tubes, ovaries Estimated Blood Loss (mL): 250cc Fluids Replaced: 1800cc Description of Procedure: Patient taken to the operating room and placed under general anesthesia. Patient placed in the dorsal lithotomy position and prepped and draped in the usual sterile fashion. Yuan catheter placed to drain clear yellow urine. Weighted speculum placed in the posterior vagina and Hdz retractor used to visualize the cervix, which was grasped with a single-tooth tenaculum. Uterus sounded to 11 cm. Cervix sequentially dilated. Uterine manipulator placed. Retractors removed. Gloves were changed and attention turned to the anterior abdominal wall. Vertical supraumbilical incision made with scalpel underlying subcutaneous tissue was dissected off of the fascia. Fascia grasped with 2 Shailni clamps and incised medially using scalpel. Peritoneum noted to have some adhesions in this area, grasped with 2 hemostats and incised medially using scissors, peritoneal entry made. Trocar placed, abdomen insufflated and confirmed intra-abdominal entry. Examination of abdominal cavity was completed. Right incision and trocar placed under direct visualization followed by the left. Some bowel adhesions noted on the left side near the IP ligament. Adhesions were taken down bluntly and using monopolar electrocautery. Left ureter visualized. Left round ligament incised with using monopolar cautery and carried down towards the cervix. Vesicouterine peritoneum identified and bladder flap was created. Left IP ligament cauterized in several locations and cut. Dissection carried down towards the cervix. Small arterial bleeding was noted on the left pelvic sidewall this was cauterized. Noted to have the left ovary adhesed on the left side. Careful dissection was completed on this side. Left fallopian tube coagulated cut and removed through trocar to better visualization. At that time the right side of the uterus was visualized. Right ureter visualized. Right round ligament incised and carried down towards the vesicouterine peritoneum and bladder flap completing this area. Further dissection of bladder pillars away from the cervix completed. Right IP ligament coagulated in several locations and incised. Dissection carried down the right side of the uterus to the level of the cervix. Right uterine arteries coagulated and incised. Allowing the uterine arteries to fall away from the cup. Left ovary complex was investigated again, careful dissection posteriorly allowed the ovary to be released away from the left sidewall further. Subsequently left uterine artery coagulated and cut. Uterine artery dissected away from the manipulator cup. Attempt to make posterior colpotomy was made however due to difficult visualization and shape of the uterus anterior colpotomy was started and carried down around the left side of the cervix. This was then carried posteriorly around the right side. Uterus cervix, right tube, and and ovaries removed through the vagina. Apices of the vaginal cuff grasped with Allis clamps. Vaginal cuff closed with a running locking stitch from both apices. This was tied at the midline. Some oozing noted in the posterior vaginal epithelium, hemostatic with 1 [id number]-xr-dtaef stitch. Yuan catheter removed and cystoscopy completed. Inspection of the bladder completed a 360 degree manner noting an intact bladder dome and bilateral ureteral jets. Gloves were changed and attention again turned to the abdomen. Abdomen inspected again noting hemostasis at the vaginal apex and cuff as well as on the left pelvic sidewall and right pelvic sidewall. Nelia placed along the vaginal cuff and sidewalls. Trochars removed under direct visualization. Insufflation stopped. Fascia at the supraumbilical incision closed with a running stitch. Skin then closed with a running subcuticular stitch and skin glue. At the end of the procedure all needle, lap, sponge counts were correct x3. UOP: 500cc clear urine
--- NOTE | 2020-12-10 12:32 | DCINST_ITS ---
Discharge Activity: Return to Normal Activity, May not drive while taking narcotic pain medications. May resume sexual activity in: 6 weeks Weight Bearing Status: Weight bearing as tolerated Call your doctor if your incision/area has: Continuous Slow Oozing, Sudden Increased Bleeding, Increased Pain/ Swelling Call your doctor if you observe: Fever of 101 or Higher, Coldness, Increased Pain, Inability to have a bowel movement, Using more than one pad per hour, Shortness of breath, Dizziness Cleanse incision/area with: Soap & Water Allergies/Adverse Reactions: Allergies No Known Allergies Allergy (Verified 12/10/20 10:21) Medications to take at Discharge Levothyroxine [Synthroid] 137 mcg PO DAILY 04/11/19 Tamoxifen Citrate [Nolvadex] 20 mg PO DAILY #90 tab 10/20/20 Multivitamin [Daily Multiple Vitamin] 1 ea PO DAILY 12/01/20 Enoxaparin Sodium [Lovenox] 40 mg SQ DAILY 7 Days #7 syringe 12/10/20 Oxycodone [Oxyir] 5 mg PO Q4H PRN PRN 3 Days #21 tab 12/10/20 The following prescriptions were given: Enoxaparin Sodium [Lovenox] 40 mg SQ DAILY 7 Days #7 syringe Transmission Status: Received by [id number] Oxycodone [Oxyir] 5 mg PO Q4H PRN PRN 3 Days #21 tab PRN Reason: Pain Score 6-10 Transmission Status: Received by [id number] Primary Care Physician: Vilma Bowens RAW SCALES OPERATOR, RAW SCALES OPERATOR-C [Primary Care Provider] - Test Results: Test results from this visit will be discussed in further detail at your follow- up appointment, if applicable. Please Follow Up With: Trudi Bergman DO When: 2 weeks
[2020-12-10] MEDS: Cefazolin 2 GM in 0.9% Normal Saline 100 ML IV (12:48)
[2020-12-10] MEDS: oxyCODONE 5 MG Tablet PO (19:04)
== END 2020-12-10 19:29 | disposition home or self-care (01) ==
LOC: SDC 08:19 → AC 08:20
PROVIDERS: Anesthesiology; PCP Nurse Practitioner Family; Referring Provider Student in an Organized Health Care Education/Training Program; Visit Provider Student in an Organized Health Care Education/Training Program
PROC: 0UT94ZZ Resection of Uterus, Percutaneous Endoscopic Approach (ICD-10-PCS; CPT 58571; principal; 2020-12-10 11:30)
DX: Z40.02 Encounter for prophylactic removal of ovary(s) (principal); Z85.3 Personal history of malignant neoplasm of breast; Z80.3 Family history of malignant neoplasm of breast; N73.6 Female pelvic peritoneal adhesions (postinfective); N83.8 Other noninflammatory disorders of ovary, fallopian tube and broad ligament; N85.01 Benign endometrial hyperplasia; N83.292 Other ovarian cyst, left side; N83.291 Other ovarian cyst, right side; E03.9 Hypothyroidism, unspecified; Z20.822 Contact with and (suspected) exposure to COVID-19
CPT/HCPCS: 00840; 58571; 36415; 83735; 84443; 85027; 86850; 86900; 86901; 87426; 88302; 88305; 88307; 93005; C9803; J7120; J2405

== ENCOUNTER → 2021-09-01 | Outpatient (CLI) | payer OTHER, SELFPAY ==
[2018-08-28 14:50] VITALS: BMI 26.6
== END | disposition home or self-care (01) ==
LOC: LABSPEC 13:08
PROVIDERS: PCP Nurse Practitioner Family; Referring Provider Physician Assistant; Visit Provider Physician Assistant
DX: Z20.822 Contact with and (suspected) exposure to COVID-19 (principal)
CPT/HCPCS: 87635; U0005; U0003

== ENCOUNTER 2021-12-13 13:33 | Outpatient (CLI) | payer OTHER, SELFPAY ==
[2018-08-28 14:50] VITALS: BMI 26.6
[2021-12-13 14:55] LABS: Free T3 2.3 pg/mL (2.18-3.98); T4 Free Direct 1.37 ng/dL (0.76-1.46); Thyroid Stim Hormone (TSH) 1.28 uIU/mL (0.358-3.74)
== END 2021-12-13 23:59 | disposition home or self-care (01) ==
LOC: WOBLAB 13:33
PROVIDERS: PCP Nurse Practitioner Family; Visit Provider Student in an Organized Health Care Education/Training Program
DX: E03.9 Hypothyroidism, unspecified (principal)
CPT/HCPCS: 36415; 84439; 84443; 84481

== ENCOUNTER 2021-12-17 11:08 | Outpatient (CLI) | payer OTHER, SELFPAY ==
[2018-08-28 14:50] VITALS: BMI 26.6
--- NOTE | 2021-12-17 12:16 | BI_ITS ---
MAMMOGRAPHY - BILATERAL SCREENING REASON FOR EXAM: Female, 61 years old. Routine annual screening examination. PERTINENT HISTORY: Personal history of breast cancer. Prior left lumpectomy with the radiation therapy. Sister with breast cancer. Mother with breast cancer. TECHNIQUE: Digital bilateral breast rosey (3D mammographic acquisition) in the CC and MLO projections. 2-D mediolateral oblique (MLO) and craniocaudad (CC) views of both breasts were obtained. CAD: Full Field Digital Mammography with Computer Added Detection was performed. COMPARISON: Comparison is made with prior study dated 07/15/2020 and 06/18/2019. FINDINGS: Breast Composition: There are scattered areas of fibroglandular density. There are no dominant masses or suspicious calcifications. The patient is status post lumpectomy in the inferior deep medial aspect of the left breast. Scarring. A tissue clip marker is once again seen in the anterior retroareolar region of the left breast. The previously seen 1 cm nodule in the superior retroareolar region of the right breast No other significant abnormalities are identified. BI/SCRN MAMM (CAD)W/ROSEY BILAT IMPRESSION: Stable bilateral screening mammogram. Yearly follow-up mammogram recommended. (A) ASSESSMENT CATEGORY: BIRADS Category 2: Benign. A letter regarding these results will be sent to the patient by the facility within 30 days. Approximately 10% of breast cancers are not detected by mammography. A normal mammogram should not delay biopsy of a clinically suspicious abnormality. [id number] Electronically Signed: Jas Blandon MD at 13:03 EST ,
== END 2021-12-17 23:59 | disposition home or self-care (01) ==
LOC: OPBI 12:15
PROVIDERS: PCP Nurse Practitioner Family; Referring Provider Student in an Organized Health Care Education/Training Program; Visit Provider Student in an Organized Health Care Education/Training Program
DX: Z12.31 Encounter for screening mammogram for malignant neoplasm of breast (principal); Z08 Encounter for follow-up examination after completed treatment for malignant neoplasm; Z85.3 Personal history of malignant neoplasm of breast; Z80.3 Family history of malignant neoplasm of breast
CPT/HCPCS: 77063; 77067

== ENCOUNTER → 2022-12-19 | Outpatient (CLI) | payer OTHER, SELFPAY ==
[2018-08-28 14:50] VITALS: BMI 26.6
--- NOTE | 2022-12-19 10:07 | BI_ITS ---
MAMMOGRAPHY - BILATERAL SCREENING REASON FOR EXAM: Female, 62 years old. Routine annual screening examination. PERTINENT HISTORY: Personal history of breast cancer. Prior left lumpectomy with radiation therapy. History of prior left stereotactic breast biopsy. Sister with breast cancer. TECHNIQUE: Digital bilateral breast rosey (3D mammographic acquisition) in the CC and MLO projections. 2-D mediolateral oblique (MLO) and craniocaudad (CC) views of both breasts were obtained. CAD: Full Field Digital Mammography with Computer Added Detection was performed. COMPARISON: Comparison is made with prior study dated 12/17/2021 and 07/15/2020. FINDINGS: Breast Composition: There are scattered areas of fibroglandular density. There are no dominant masses or suspicious calcifications. The patient is status post lumpectomy in the inferior deep medial aspect of the left breast. Postsurgical changes are seen. A tissue clip marker is seen in the anterior retroareolar region of the left breast. No other significant abnormalities are identified. There has been no significant change since the prior study. BI/SCRN MAMM (CAD)W/ROSEY BILAT IMPRESSION: Stable bilateral screening mammogram. Yearly follow-up mammogram recommended. (A) ASSESSMENT CATEGORY: BIRADS Category 2: Benign. A letter regarding these results will be sent to the patient by the facility within 30 days. Approximately 10% of breast cancers are not detected by mammography. A normal mammogram should not delay biopsy of a clinically suspicious abnormality. [id number] Electronically Signed: Jas Blandon MD at 11:30 EST ,
== END | disposition home or self-care (01) ==
LOC: OPBI 10:05
PROVIDERS: PCP Nurse Practitioner Family; Visit Provider Internal Medicine Medical Oncology
DX: Z12.31 Encounter for screening mammogram for malignant neoplasm of breast (principal)
CPT/HCPCS: 77063; 77067

== ENCOUNTER → 2022-12-20 | Outpatient (CLI) | payer OTHER, SELFPAY ==
[2018-08-28 14:50] VITALS: BMI 26.6
[2022-12-20 13:28] LABS: T4 Free Direct 1.46 ng/dL (0.76-1.46); Thyroid Stim Hormone (TSH) 0.82 uIU/mL (0.358-3.74)
== END | disposition home or self-care (01) ==
PROVIDERS: PCP Nurse Practitioner Family; Visit Provider Student in an Organized Health Care Education/Training Program
DX: E03.9 Hypothyroidism, unspecified (principal)
CPT/HCPCS: 36415; 84439; 84443

== ENCOUNTER → 2022-12-23 | Outpatient (CLI) | payer OTHER, SELFPAY ==
[2018-08-28 14:50] VITALS: BMI 26.6
--- NOTE | 2022-12-23 16:19 | US_ITS ---
STUDY: THYROID ULTRASOUND REASON FOR EXAM: Female, 62 years old. HYPOTHYROIDISM TECHNIQUE: Ultrasound evaluation of the thyroid was performed with real-time and static rodgers-scale imaging. COMPARISON: None. FINDINGS: RIGHT LOBE: The right lobe of the thyroid gland measures 6.1 x 3.3 x 2.4 cm. There is a homogenous but diffusely hypoechoic.. There are no demonstrated solid, cystic or complex lesions. LEFT LOBE: The left lobe of the thyroid gland measures 2.2 x 0.6 x 0.8 cm. There is a heterogeneous echotexture. 6 mm hyperechoic nodule. This nodule is solid or almost completely solid, hyperechoic or isoechoic, [id number]-[id number], smoothly marginated and contains no echogenic foci. TI-RADS points: 3. TI-RADS category: TR3. This nodule is mildly suspicious but no FNA or follow-up is necessary given the small size of this nodule. ISTHMUS: The isthmus measures 2 mm. The regional lymph nodes are normal. US/Thyroid IMPRESSION: 1. Enlarged right thyroid lobe which is diffusely hypoechoic which may represent thyroiditis. 2. 6 mm TR 3 left thyroid lobe nodule. No specific follow-up recommendations due to small size. 3. Small heterogeneous left thyroid lobe likely sequela of chronic thyroiditis. Electronically Signed: Kishan Gómez (Brooks), at 10:16 EST ,
== END | disposition home or self-care (01) ==
LOC: US 16:18
PROVIDERS: PCP Nurse Practitioner Family; Referring Provider Student in an Organized Health Care Education/Training Program; Visit Provider Student in an Organized Health Care Education/Training Program
DX: E03.9 Hypothyroidism, unspecified (principal)
CPT/HCPCS: 76536

== ENCOUNTER → 2024-01-16 | Outpatient (CLI) | payer OTHER, SELFPAY ==
[2018-08-28 14:50] VITALS: BMI 26.6
--- NOTE | 2024-01-16 08:45 | BI_ITS ---
MAMMOGRAPHY - BILATERAL SCREENING REASON FOR EXAM: Female, 63 years old. Routine annual screening examination. PERTINENT HISTORY: Personal history of breast cancer. Prior left lumpectomy with radiation treatment. Left stereotactic breast biopsy. Sister with breast cancer. Mother with breast cancer. TECHNIQUE: Digital bilateral breast rosey (3D mammographic acquisition) in the CC and MLO projections. 2-D mediolateral oblique (MLO) and craniocaudad (CC) views of both breasts were obtained. CAD: Full Field Digital Mammography with Computer Added Detection was performed. COMPARISON: Comparison is made with prior study dated December 19, 2022 and December 17, 2021. FINDINGS: Breast Composition: There are scattered areas of fibroglandular density. There is a 4.9 mm x 6.8 mm well-defined nodule in the slightly inferior central portion of the left breast. Correlation with ultrasound is recommended. Once again, the patient is status post lumpectomy in the inferior deep medial aspect of the left breast with the postoperative scarring. A tissue clip marker is seen in the central retroareolar region of the left breast. No other significant abnormalities are identified. BI/SCRN MAMM (CAD)W/ROSEY BILAT IMPRESSION: 4.9 mm x 6.8 mm well-defined nodule in the slightly inferior central portion of the left breast. Correlation with ultrasound is recommended. Status post left lumpectomy and left stereotactic breast biopsy. ASSESSMENT CATEGORY: BIRADS Category 0: Incomplete. Need additional imaging evaluation. A letter regarding these results will be sent to the patient by the facility within 30 days. Approximately 10% of breast cancers are not detected by mammography. A normal mammogram should not delay biopsy of a clinically suspicious abnormality. [id number] Electronically Signed: Jas Blandon MD at 10:09 EDT ,
== END | disposition home or self-care (01) ==
LOC: OPBI 08:45
PROVIDERS: PCP Nurse Practitioner Family; Referring Provider Advanced Practice Midwife; Visit Provider Advanced Practice Midwife
DX: Z12.31 Encounter for screening mammogram for malignant neoplasm of breast (principal)
CPT/HCPCS: 77063; 77067

== ENCOUNTER → 2024-01-26 | Outpatient (CLI) | payer OTHER, SELFPAY ==
[2018-08-28 14:50] VITALS: BMI 26.6
--- NOTE | 2024-01-26 10:53 | US_ITS ---
STUDY: ULTRASOUND BREAST - LEFT REASON FOR EXAM: Female, 63 years old. Abnormal screening mammogram. TECHNIQUE: Axial and longitudinal images of the LEFT breast were performed with a high resolution ultrasound transducer. # OF IMAGES: 72 COMPARISON: Comparison is made with prior mammogram dated January 16, 2024. FINDINGS: LEFT Breast: The 5:00 to the 7:00 region of the left breast was examined with ultrasound. No abnormal nodular density is seen. Additional mammographic views will be obtained. US/Breast Limited Unilateral IMPRESSION: No sonographic abnormality is seen. Additional mammographic views will be obtained. ASSESSMENT CATEGORY: BIRADS Category 0: Incomplete. Need additional imaging evaluation. A letter regarding these results will be sent to the patient by the facility within 30 days. Electronically Signed: Jas Blandon MD at 12:55 EDT ,
--- NOTE | 2024-01-26 11:35 | BI_ITS ---
MAMMOGRAPHY - UNILATERAL DIAGNOSTIC: LEFT BREAST REASON FOR EXAM: Female, 63 years old. Abnormal screening mammogram. PERTINENT HISTORY: Personal history of breast cancer. Prior left lumpectomy with radiation treatment. Prior left stereotactic breast biopsy. TECHNIQUE: Compression magnification spot views of the left breast as well 90 degree lateral view were obtained. CAD: Full Field Digital Mammography with Computer Added Detection was performed. COMPARISON: Comparison is made with prior mammogram dated January 16, 2024 and prior sonogram done earlier today. FINDINGS: Breast Composition: There are scattered areas of fibroglandular density. Persistent 6.8 mm x 4.9 mm well-defined nodule in the slightly inferior central portion of the left breast. This was not seen on the ultrasound. This was seen on prior mammograms. Correlation with MRI is recommended. No other significant abnormalities are identified. BI/DIAG MAMM W/CAD, UNILAT IMPRESSION: Persistent subcentimeter nodular density in the slightly inferior central portion of the left breast. This is not visualized on the targeted sonogram examination. Correlation with MRI is recommended. ASSESSMENT CATEGORY: BIRADS Category 0: Incomplete. Need additional imaging evaluation. A letter regarding these results will be sent to the patient by the facility within 30 days. Approximately 10% of breast cancers are not detected by mammography. A normal mammogram should not delay biopsy of a clinically suspicious abnormality. Electronically Signed: Jas Blandon MD at 12:44 EDT ,
== END | disposition home or self-care (01) ==
PROVIDERS: PCP Nurse Practitioner Family; Referring Provider Advanced Practice Midwife; Visit Provider Advanced Practice Midwife
DX: N63.20 Unspecified lump in the left breast, unspecified quadrant (principal); Z85.3 Personal history of malignant neoplasm of breast
CPT/HCPCS: 76642; 77065

== ENCOUNTER → 2024-02-12 | Outpatient (CLI) | payer OTHER, SELFPAY ==
[2018-08-28 14:50] VITALS: BMI 26.6
--- NOTE | 2024-02-12 12:41 | MRI_ITS ---
STUDY: BILATERAL BREAST MR WITHOUT AND WITH CONTRAST REASON FOR EXAM: Female, 63 years old. History of left lumpectomy with radiation therapy. Persistent nodular area in the left breast seen on mammogram but not visualized on ultrasound. Workup. TECHNIQUE: Multi-sequence multi-echo imaging of both breasts was performed with a dedicated breast coil. T1-weighted and T2-weighted images were performed before the administration of contrast. T1-weighted images were also performed after the intravenous administration of 15 mL of Clariscan contrast. COMPARISON: Left breast ultrasound dated 01/26/2024, left diagnostic mammogram dated 01/26/2024, bilateral mammogram dated 01/16/2024 and bilateral mammogram dated 12/19/2019 FINDINGS: RIGHT BREAST: Predominantly fatty replacement with minimal background enhancement. No abnormal enhancing masses or areas of non-mass enhancement in the right breast. LEFT BREAST: Predominantly fatty replacement with minimal background enhancement. No abnormal enhancing masses or areas of non-mass enhancement in the left breast. No enlarged or abnormal lymph nodes. No abnormality in the visualized regions of the chest or liver. MRI/Breast Bilateral W/O and W IMPRESSION: No abnormality on the bilateral breast MRI with contrast. Six-month follow-up left mammogram recommended for low-density 7 mm in diameter nodule seen only on mammogram. CATEGORY: BIRADS Category 3: Probably Benign - Short-Interval Follow-up Suggested. A letter regarding these results will be sent to the patient by the facility within 30 days. Electronically Signed: Mayank Nath MD at 14:57 EDT ,
== END | disposition home or self-care (01) ==
LOC: MRI 12:36
PROVIDERS: PCP Nurse Practitioner Family; Referring Provider Advanced Practice Midwife; Visit Provider Advanced Practice Midwife
DX: R92.8 Other abnormal and inconclusive findings on diagnostic imaging of breast (principal)
CPT/HCPCS: 77049; A9575; A4216; C8908

== ENCOUNTER → 2025-01-16 | Outpatient (CLI) | payer OTHER, SELFPAY ==
[2018-08-28 14:50] VITALS: BMI 26.6
--- NOTE | 2025-01-16 09:15 | BI_ITS ---
EXAM: SCRN MAMM (CAD)W/ROSEY BILAT 01/16/2025 CLINICAL HISTORY: F, Age 64 y/o , SCREENING MAMMOGRAM FOR BREAST CANCER TECHNIQUE: Bilateral Diagnostic digital breast tomosynthesis with 2D and 3D images. Computer aided detection. COMPARISON: Prior exam(s) dated 02/12/2024, 01/26/2024, 01/16/2024, 12/19/2022. FINDINGS: TISSUE DENSITY: The breast tissue is composed of scattered area of fibroglandular density. Bilateral Breast Mammographic Findings: No significant masses, calcifications or other abnormalities are identified. BI/SCRN MAMM (CAD)W/ROSEY BILAT IMPRESSION: Right Breast: BIRADS 1 NEGATIVE. Left Breast: BIRADS 1 NEGATIVE. OVERALL FINAL ASSESSMENT: BIRADS 1 NEGATIVE. RECOMMENDATION: Routine annual follow-up in 1 Year A letter with findings and recommendations will be mailed to the patient. Reading Location: [id number]
== END | disposition home or self-care (01) ==
LOC: OPBI 09:14
PROVIDERS: PCP Nurse Practitioner Family; Referring Provider Advanced Practice Midwife; Visit Provider Advanced Practice Midwife
DX: Z12.31 Encounter for screening mammogram for malignant neoplasm of breast (principal)
CPT/HCPCS: 77063; 77067